=== PATIENT | female | born 1990 | race African-American/Black ===

== ENCOUNTER 2017-11-28 12:57 | Emergency (ER) | payer BC ==
[~2017-11-28] VITALS: Ht 175.3 cm; Wt 77.0 kg
[2017-11-28] MEDS ORDERED: SODIUM CHLORIDE 0.9% 1,000 ML IV ONE (14:03)
[2017-11-28] MEDS ORDERED: KETOROLAC 30MG/ML VIAL IV STA (14:03)
[2017-11-28] MEDS ORDERED: METOCLOPRAMIDE HCL 10MG/2ML VIAL IV ONE (14:15)
[2017-11-28 14:46] LABS: HCG SCREEN NEGATIVE
[2017-11-28 14:47] LABS: CLARITY URINE CLOUDY (CLEAR); COLOR URINE YELLOW (YELLOW); KETONES URINE 1+ (NEGATIVE); LEUKOCYTE ESTERASE URINE NEGATIVE (NEGATIVE); NITRITE URINE NEGATIVE (NEGATIVE); OCCULT BLOOD URINE TRACE (NEGATIVE); PROTEIN URINE TRACE (NEGATIVE); SPECIFIC GRAVITY URINE 1.033 (1.005-1.030); UROBILINOGEN URINE 0.2 E.U./dL (0.2-1.0)
[2017-11-28 14:48] LABS: CHLORIDE 111 mEq/L (98-107)
[2017-11-28 14:51] LABS: BASOPHILS % 0.4 % (0.0-2.0); HEMATOCRIT. 40.2 % (36.0-48.0); HEMOGLOBIN. 13.7 g/dL (12.0-16.0); LYMPHOCYTES % 14.1 % (20.0-50.0); MEAN CORPUSCULAR HEMOGLOBIN 31.2 pg (28.0-32.0); MEAN CORPUSCULAR VOLUME 91.5 fL (81.0-99.0); MEAN PLATELET VOLUME 8.2 fl (7.4-10.4); MONOCYTES % 3.3 % (2.0-8.0); NEUTROPHILS % 82.2 % (40.0-76.0); PLATELET 237 x1000/uL (130-400); RED CELL DISTRIBUTION WIDTH 13.7 % (11.6-14.6)
[2017-11-28 14:59] LABS: CREATINE KINASE 78 IU/L (26-192)
[2017-11-28] MEDS ORDERED: SUMATRIPTAN SUCCINATE 6MG/0.5ML VIAL SUBCUT ONE (15:15)
[2017-11-28 16:51] VITALS: BP 107/51
== END 2017-11-28 16:54 | disposition home or self-care (01) ==
LOC: ER 14:30
DX: R51 Headache (principal); M79.1 Myalgia; R11.10 Vomiting, unspecified; F12.10 Cannabis abuse, uncomplicated
CPT/HCPCS: 36415; 80053; 81003; 81025; 82550; 83690; 84703; 85025; 93005; 96361; 96372; 96374; 96375; 99285; J1885; J2765; J3030; J7030; Z7610